=== PATIENT | female | born 1965 | race Caucasian/White ===

== ENCOUNTER 2018-11-21 18:56 | Emergency (ER) | payer MEDICAID ==
[~2018-11-21] VITALS: Ht 160 cm; Wt 70.0 kg
[2018-11-21 19:40] LABS: BASOPHILS % (AUTO) 0.6 % (0-1); EOSINOPHILS # (AUTO) 0.2 X10'3 (0-0.9); EOSINOPHILS % (AUTO) 2.6 % (0-6); HEMATOCRIT 38.6 % (35.0-45.0); HEMOGLOBIN 12.9 g/dl (12.0-16.0); LYMPHOCYTES # (AUTO) 2.1 X10'3 (1.1-4.8); LYMPHOCYTES % (AUTO) 34.7 % (21-51); MEAN CORPUSCULAR HEMOGLOBIN 30.5 PG (27.0-31.0); MEAN CORPUSCULAR HGB CONC 33.3 g/dL (33.0-36.5); MEAN CORPUSCULAR VOLUME 91.4 FL (78-98); MONOCYTES # (AUTO) 0.6 X10'3 (0-0.9); MONOCYTES % (AUTO) 9.9 % (2-12); NEUTROPHILS # (AUTO) 3.1 X10'3 (1.8-7.7); NEUTROPHILS % (AUTO) 52.2 % (42-75); PLATELET COUNT 240 X10'3 (140-440); RED BLOOD COUNT 4.22 X10'6 (4.20-5.60); RED CELL DISTRIBUTION WIDTH 13.5 % (11.5-14.5); WHITE BLOOD COUNT 5.9 X10'3 (4.5-11.0)
[2018-11-21 19:51] LABS: ALANINE AMINOTRANSFERASE 23 U/L (12-78); ALBUMIN/GLOBULIN RATIO 1.1 (1.1-1.5); ALKALINE PHOSPHATASE 69 IU/L (46-116); ANION GAP 6 (8-16); ASPARTATE AMINO TRANSFERASE 16 U/L (10-37); BILIRUBIN,TOTAL 0.3 MG/DL (0.1-1.0); BLOOD UREA NITROGEN 17 MG/DL (7-18); BUN/CREATININE RATIO 17.5 (6.6-38.0); CALCIUM 8.9 MG/DL (8.5-10.1); CHLORIDE 109 MMOL/L (99-107); CREATININE 0.97 MG/DL (0.40-0.90); GLUCOSE 89 MG/DL (70-104); POTASSIUM 3.7 MMOL/L (3.5-5.1); SODIUM 144 MMOL/L (135-145); TOTAL CARBON DIOXIDE 28.8 MMOL/L (24-32); TOTAL PROTEIN 7.6 G/DL (6.4-8.2); eGFR 60 ML/MIN
[2018-11-21 19:52] LABS: PARTIAL THROMBOPLASTIN TIME 29 SECONDS (22-32)
[2018-11-21] MEDS ORDERED: HYDR-3686 PO (20:33)
[2018-11-21 20:49] VITALS: BP 124/69
== END 2018-11-21 20:50 | disposition home or self-care (01) ==
LOC: ER 18:57
DX: R07.89 Other chest pain (principal); G43.909 Migraine, unspecified, not intractable, without status migrainosus; Z98.890 Other specified postprocedural states; Z88.6 Allergy status to analgesic agent; Z88.0 Allergy status to penicillin; Z88.2 Allergy status to sulfonamides
CPT/HCPCS: 36415; 71045; 80053; 84484; 85025; 85610; 85730; 93005; 99284

== ENCOUNTER 2020-06-11 10:14 | Day surgery (SDC) | payer MEDICAID, MEDICARE ==
[~2020-06-11] VITALS: Ht 160 cm; Wt 78.2 kg
[2020-06-11 10:30] VITALS: BP 115/74
[2020-06-11] MEDS ORDERED: IBUP-24 PO (10:41)
[2020-06-11] MEDS ORDERED: ACET-890 PO (10:41)
[2020-06-11] MEDS ORDERED: MIDAZolam 1 MG/ML 5ML VIAL ONE (10:42)
[2020-06-11] MEDS ORDERED: fentaNYL/PF 50MCG/1 ML 2ML syringe ONE (10:42)
[2020-06-11 11:25] VITALS: BP 119/71
[2020-06-11 11:35] VITALS: BP 115/72
[2020-06-11 11:45] VITALS: BP 122/75
[2020-06-11 11:55] VITALS: BP 127/76
== END 2020-06-11 12:10 | disposition home or self-care (01) ==
LOC: GI LAB 10:14
PROVIDERS: ATTEND Internal Medicine Gastroenterology
DX: Z12.11 Encounter for screening for malignant neoplasm of colon (principal); K62.1 Rectal polyp; K63.5 Polyp of colon; K64.8 Other hemorrhoids; K57.30 Diverticulosis of large intestine without perforation or abscess without bleeding; G43.909 Migraine, unspecified, not intractable, without status migrainosus; Z79.899 Other long term (current) drug therapy; Z83.71 Family history of colonic polyps
CPT/HCPCS: 45380; 45385; 99152; 99153; C1773; J2250; J3010; J7040; 43239; 43251; A4620